=== PATIENT | male | born 1990 | race Caucasian/White ===

== ENCOUNTER 2016-12-07 22:18 | Emergency (ER) | payer BC ==
[~2016-12-07] VITALS: Ht 170.2 cm; Wt 86.3 kg
[2016-12-07] MEDS ORDERED: ONDANSETRON 4MG/2ML VIAL (J2405) IV ONE (23:45)
[2016-12-07] MEDS ORDERED: KETOROLAC 30 MG/ML VIAL (J1885) IV ONE (23:45)
[2016-12-07 23:48] LABS: BASO # 0.1 K/mm3 (0.0-0.2); BASO % 0.6 % (0.0-1.0); EOS # 0.3 K/mm3 (0.0-0.50); EOS % 2.9 % (0.0-3.0); LARGE UNSTAINED CELL # 0.2 K/mm3 (0.0-0.4); LARGE UNSTAINED CELL % 2.4 % (0.0-4.0); LYMPH # 2.9 K/mm3 (1.5-6.5); LYMPH % 28.4 % (24.0-44.0); MEAN CORPUSCULAR HEMOGLOBIN 31.1 pg (27.0-33.0); MEAN CORPUSCULAR HGB CONC 34.6 g/dl (32.0-36.5); MEAN CORPUSCULAR VOLUME 89.8 fl (80.0-96.0); MONO # 0.8 K/mm3 (0.0-0.8); MONO % 8.5 % (0.0-5.0); NEUTROPHILS # 5.4 K/mm3 (1.8-7.7); NEUTROPHILS % 57.3 % (36.0-66.0); PLATELET COUNT, AUTOMATED 258 k/mm3 (150-450); RED CELL DISTRIBUTION WIDTH 12.6 % (11.5-14.5); WHITE BLOOD COUNT 9.4 K/mm3 (4.0-10.0)
[2016-12-08 00:13] LABS: ALBUMIN/GLOBULIN RATIO 0.95 (1.00-1.93); ALKALINE PHOSPHATASE 76 U/L (45-117); ALT/SGPT 43 U/L (12-78); AMYLASE 52 U/L (25-115); ANION GAP 4 MEQ/L (8-16); AST/SGOT 26 U/L (15-37); BILIRUBIN,DIRECT < 0.1 MG/DL (0.0-0.2); BILIRUBIN,TOTAL 0.3 MG/DL (0.2-1.0); BLOOD UREA NITROGEN 8 MG/DL (7-18); CALCIUM LEVEL 9.3 MG/DL (8.5-10.1); CARBON DIOXIDE LEVEL 30 MEQ/L (21-32); CHLORIDE LEVEL 104 MEQ/L (98-107); CREATININE FOR GFR 0.93 MG/DL (0.70-1.30); GLOMERULAR FILTRATION RATE > 60.0 (>60); GLUCOSE, FASTING 85 MG/DL (70-105); POTASSIUM SERUM 3.6 MEQ/L (3.5-5.1); SODIUM LEVEL 138 MEQ/L (136-145); TOTAL PROTEIN 8.2 GM/DL (6.4-8.2)
[2016-12-08] MEDS ORDERED: OMEP40CA2 PO (00:38)
[2016-12-08 00:47] VITALS: BP 129/68
== END 2016-12-08 00:47 | disposition home or self-care (01) ==
LOC: M ED 22:18
DX: K29.70 Gastritis, unspecified, without bleeding (principal); R51 Headache; F17.200 Nicotine dependence, unspecified, uncomplicated
CPT/HCPCS: 80048; 80076; 82150; 83690; 85025; 96374; 96375; 99283; J1885; J2405

== ENCOUNTER 2019-06-14 15:50 | Emergency (ER) | payer BC ==
[~2019-06-14] VITALS: Ht 170.2 cm; Wt 89.9 kg
[~2019-06-14 15:50] MED LIST: OMEP40CA97 PO; VENTAER
[2019-06-14 16:22] LABS: BASO % 0.3 % (0.0-1.0); EOS # 0.2 10^3/uL (0.0-0.5); EOS % 1.5 % (0.0-3.0); HEMOGLOBIN 16.8 g/dl (13.5-17.5); LYMPH # 2.6 10^3/uL (1.5-5.0); LYMPH % 25.2 % (24.0-44.0); MEAN CORPUSCULAR HEMOGLOBIN 30.2 pg (27.0-33.0); MEAN CORPUSCULAR HGB CONC 33.6 g/dl (32.0-36.5); MEAN CORPUSCULAR VOLUME 89.9 fl (80.0-96.0); MONO # 1.1 10^3/uL (0.0-0.8); MONO % 10.6 % (0.0-5.0); NEUTROPHILS # 6.4 10^3/uL (1.5-8.5); NEUTROPHILS % 62.1 % (36.0-66.0); PLATELET COUNT, AUTOMATED 320 10^3/uL (150-450); RED BLOOD COUNT 5.56 10^6/uL (4.30-6.10); WHITE BLOOD COUNT 10.4 10^3/uL (4.0-10.0)
[2019-06-14 16:54] LABS: ALBUMIN 4.1 GM/DL (3.2-5.2); ALT/SGPT 39 U/L (12-78); AMYLASE 47 U/L (25-115); BILIRUBIN,DIRECT 0.1 MG/DL (0.0-0.2); BILIRUBIN,TOTAL 0.4 MG/DL (0.2-1.0); BLOOD UREA NITROGEN 13 MG/DL (7-18); CALCIUM LEVEL 9.3 MG/DL (8.5-10.1); CARBON DIOXIDE LEVEL 29 MEQ/L (21-32); CHLORIDE LEVEL 107 MEQ/L (98-107); CREATININE FOR GFR 1.01 MG/DL (0.70-1.30); GLOMERULAR FILTRATION RATE > 60.0 (>60); GLUCOSE, FASTING 79 MG/DL (70-100); POTASSIUM SERUM 3.8 MEQ/L (3.5-5.1); SODIUM LEVEL 140 MEQ/L (136-145); TOTAL PROTEIN 8.2 GM/DL (6.4-8.2)
--- NOTE | 2019-06-14 19:01 | REP ---
Chest x-ray: Two views. History: Chest pain. Comparison chest x-ray April 24, 2019. Findings: EKG monitoring electrodes overlie the chest. There is a linear opacity anteriorly overlying the heart on the lateral radiograph consistent with discoid atelectasis in the lingula or right middle lobe. This is not possible to localize on the frontal view. Lung jones are otherwise clear. Pleural angles are sharp. The heart is not enlarged. Pulmonary vasculature is not increased. No bony abnormalities seen. Impression: Plate-like atelectasis in one of the lung bases, either right middle lobe or lingula visible only on the lateral radiograph. Otherwise no acute disease. Electronically Signed by Neil Shoemaker MD 06/14/2019 06:52 P
[2019-06-14 19:09] LABS: LIPASE 85 U/L (73-393)
[2019-06-14] MEDS ORDERED: ASPIRIN 81 MG CHEW TABLET PO ONE (19:15)
[2019-06-14 19:36] LABS: CK-MB VALUE MASS < 1.0 NG/ML (<3.6); CPK CREATINE PHOSPHOKINASE 119 U/L (39-308); MB/CK RELATIVE INDEX 0.84 (< OR =4); TROPONIN I < 0.02 NG/ML (< 0.10)
--- NOTE | 2019-06-14 21:08 | ECGEPIP ---
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
[2019-06-14 22:23] LABS: CK-MB VALUE MASS < 1.0 NG/ML (<3.6); CPK CREATINE PHOSPHOKINASE 105 U/L (39-308); MB/CK RELATIVE INDEX 0.95 (< OR =4); TROPONIN I < 0.02 NG/ML (< 0.10)
[2019-06-14 22:45] VITALS: BP 113/68
--- NOTE | 2019-06-17 06:06 | ECGEPIP ---
[facility] - ED Test Date: 2019-06-14 Pat Name: TRIP JOSEPH Department: Room: - Gender: Male [employer] Member: : 1990 Requested By: ALISSA Moncada Order Number: [id number] Reading MD: Shmuel Somers Measurements Intervals [place] Rate: 72 P: 38 OK: 133 QRS: 67 QRSD: 87 T: 9 QT: 366 QTc: 402 Interpretive Statements SINUS RHYTHM BASELINE ARTIFACT AFFECTS INTERPRETATION SIMILAR TO PRIOR ON SAME DATE Electronically Signed on 06-17-2019 6:06:11 EST by Shmuel Somers
== END 2019-06-14 22:49 | disposition home or self-care (01) ==
LOC: M ED 15:50
DX: R07.9 Chest pain, unspecified (principal); J98.11 Atelectasis; M79.7 Fibromyalgia; K29.70 Gastritis, unspecified, without bleeding; F17.210 Nicotine dependence, cigarettes, uncomplicated; Z79.51 Long term (current) use of inhaled steroids

== ENCOUNTER → 2020-08-18 | Outpatient (CLI) | payer BC ==
--- NOTE | 2020-08-18 12:04 | REP ---
INDICATION: EPIGASTRIC PAIN. COMPARISON: None. TECHNIQUE/RADIOTRACER AND DOSE: 6.4 mCi of Technetium-99m mebrofenin was injected and sequential anterior images are acquired. 65 minutes after the mebrofenin injection, the patient consumed 8 ounces Ensure and an additional 60 minutes of imaging was acquired. Regions of interest are plotted around the gallbladder. FINDINGS: The initial hepatocellular parenchymal uptake phase is normal and homogeneous. Intra- and extra-hepatic bile ducts are labeled by the 10-minute image. The gallbladder is first labeled on the 15-minute image. There is normal washout from the liver parenchyma into the gallbladder and small intestine on subsequent images. The gallbladder ejection fraction is 89%. Values greater than 35% are considered normal with this technique. IMPRESSION: Normal hepatobiliary scan and normal gallbladder ejection fraction. <Electronically signed by Mode Shoemaker > 08/18/20 1200
== END ==
LOC: M RAD 09:27
PROVIDERS: ATTEND Surgery
DX: R10.13 Epigastric pain (principal)
CPT/HCPCS: 78227; A9537

== ENCOUNTER → 2020-11-04 | Outpatient (CLI) | payer BC ==
[~2020-11-04] MED LIST changes: +DULE100A INH; +OMEP40CA4 PO; -OMEP40CA97 PO
== END ==
LOC: M LABSMTC 09:40
PROVIDERS: ATTEND Anesthesiology
DX: Z20.828 Contact with and (suspected) exposure to other viral communicable diseases (principal); Z11.59 Encounter for screening for other viral diseases

== ENCOUNTER 2020-11-09 11:13 | Day surgery (SDC) | payer BC ==
[~2020-11-09] VITALS: Ht 170.2 cm; Wt 93.9 kg
[~2020-11-09 11:13] MED LIST changes: +NS 1,000 ML IV ONE
[2020-11-09] MEDS ORDERED: propofoL 200 MG/20 ML VIAL As Ordered ONE ×2 (11:48→11:58)
[2020-11-09] MEDS ORDERED: fentaNYL 100 MCG/2 ML INJECTION (J3010) As Ordered ONE ×2 (11:48→12:29)
[2020-11-09] MEDS ORDERED: LIDOCAINE 2% 100MG/5ML SDV (FOR ANES.) As Ordered ONE (11:48)
--- NOTE | 2020-11-09 12:03 | ROOR ---
Patient Name: Brett Garcia Procedure Date: 11/09/2020 11:51 AM Date of : 1990 Age: 30 Room: [facility] Gender: Male Note Status: Finalized Procedure: Upper GI endoscopy Indications: Dysphagia, Suspected esophageal reflux Providers: Mateo Daugherty Jr, MD Referring MD: CRISTI BURROWS DO Requesting Provider: Medicines: Propofol per Anesthesia Complications: No immediate complications. Procedure: Pre-Anesthesia Assessment: - Prior to the procedure, a History and Physical was performed, and patient medications and allergies were reviewed. The patient is competent. The risks and benefits of the procedure and the sedation options and risks were discussed with the patient. All questions were answered and informed consent was obtained. Patient identification and proposed procedure were verified by the physician and the nurse in the pre-procedure area and in the procedure room. Mental Status Examination: alert and oriented. Airway Examination: normal oropharyngeal airway and neck mobility. Respiratory Examination: clear to auscultation. CV Examination: normal. ASA Grade Assessment: II - A patient with mild systemic disease. After reviewing the risks and benefits, the patient was deemed in satisfactory condition to undergo the procedure. The anesthesia plan was to use moderate sedation / analgesia (conscious sedation). Immediately prior to administration of medications, the patient was re-assessed for adequacy to receive sedatives. The heart rate, respiratory rate, oxygen saturations, blood pressure, adequacy of pulmonary ventilation, and response to care were monitored throughout the procedure. The physical status of the patient was re-assessed after the procedure. The Endoscope was introduced through the mouth, and advanced to the second part of duodenum. The upper GI endoscopy was accomplished without difficulty. The patient tolerated the procedure well. Findings: The upper third of the esophagus, middle third of the esophagus, lower third of the esophagus and gastroesophageal junction were normal. The cardia, gastric fundus and gastric body were normal. Patchy moderate inflammation characterized by congestion (edema), erythema, friability and granularity was found in the prepyloric region of the stomach. Biopsies were taken with a cold forceps for histology. The duodenal bulb, first portion of the duodenum and second portion of the duodenum were normal. Biopsies for histology were taken with a cold forceps for evaluation of celiac disease. Impression: - Normal upper third of esophagus, middle third of esophagus, lower third of esophagus and gastroesophageal junction. - Normal cardia, gastric fundus and gastric body. - Gastritis. Biopsied. - Normal duodenal bulb, first portion of the duodenum and second portion of the duodenum. Biopsied. Recommendation: - Return to my office as previously scheduled. Procedure Code(s): --- Professional --- 62505, Esophagogastroduodenoscopy, flexible, transoral; with biopsy, single or multiple Diagnosis Code(s): --- Professional --- K29.70, Gastritis, unspecified, without bleeding R13.10, Dysphagia, unspecified CPT copyright 2019 [employer]. All rights reserved. The codes documented in this report are preliminary and upon registry np review may be revised to meet current compliance requirements. Mateo Daugherty MD Mateo Daugherty Jr, MD 11/09/2020 12:03:03 PM Electronically signed by Mateo Daugherty Jr, MD Number of Addenda: 0 Note Initiated On: 11/09/2020 11:51 AM Estimated Blood Loss: Estimated blood loss: none.
[2020-11-09 12:25] VITALS: BP 125/74
== END 2020-11-09 12:34 | disposition home or self-care (01) ==
LOC: M OPP 11:13
PROVIDERS: ATTEND Surgery
DX: K29.70 Gastritis, unspecified, without bleeding (principal); R13.10 Dysphagia, unspecified; K21.9 Gastro-esophageal reflux disease without esophagitis; Z79.899 Other long term (current) drug therapy; F17.210 Nicotine dependence, cigarettes, uncomplicated
CPT/HCPCS: 43239; 88305; J3010

== ENCOUNTER → 2020-12-22 | Outpatient (CLI) | payer BC ==
[~2020-12-22] MED LIST changes: -NS 1,000 ML IV ONE
--- NOTE | 2020-12-22 13:45 | REP ---
INDICATION: GASTRITIS, DYSPHAGIA. COMPARISON: None. TECHNIQUE/RADIOTRACER AND DOSE: Following the intravenous administration of 1.02 mCi technetium 99 M sulfur colloid in 2 scrambled eggs and 6 oz of water, multiple images of the upper abdomen are performed in the anterior and posterior projections for 90 minutes. FINDINGS: The gastric activity is measured. At the end of 90 minutes 85% of the ingested activity has emptied from the stomach. The T1/2 is 55 minutes which is normal. IMPRESSION: Normal gastric emptying time. <Electronically signed by Tae Yousif > 12/22/20 9942
== END ==
LOC: M RAD 11:29
PROVIDERS: ATTEND Physician Assistant
DX: K29.70 Gastritis, unspecified, without bleeding (principal); R13.10 Dysphagia, unspecified
CPT/HCPCS: 78264; A9541

== ENCOUNTER → 2021-05-16 | Outpatient (CLI) | payer BC | LOC: M LABSMTC 13:38 | PROVIDERS: ATTEND Anesthesiology | DX: Z01.812 Encounter for preprocedural laboratory examination (principal); Z20.822 Contact with and (suspected) exposure to COVID-19 ==

== ENCOUNTER 2021-05-21 13:12 | Day surgery (SDC) | payer BC ==
[~2021-05-21] VITALS: Ht 170.2 cm; Wt 91.6 kg
[~2021-05-21 13:12] MED LIST changes: +NS 1,000 ML IV ONE
[2021-05-21] MEDS ORDERED: LIDOCAINE 2% 100MG/5ML SDV (FOR ANES.) As Ordered ONE (13:37)
[2021-05-21] MEDS ORDERED: fentaNYL 100 MCG/2 ML INJECTION As Ordered ONE (13:37)
[2021-05-21] MEDS ORDERED: propofoL 500 MG/50 ML VIAL As Ordered ONE (13:38)
[2021-05-21 14:46] VITALS: BP 114/62
== END 2021-05-21 14:47 | disposition home or self-care (01) ==
LOC: M OPP 13:12
PROVIDERS: ATTEND Internal Medicine Gastroenterology
DX: K58.1 Irritable bowel syndrome with constipation (principal); R19.4 Change in bowel habit; K21.9 Gastro-esophageal reflux disease without esophagitis; R12 Heartburn; R13.10 Dysphagia, unspecified; F17.210 Nicotine dependence, cigarettes, uncomplicated; Z80.1 Family history of malignant neoplasm of trachea, bronchus and lung
CPT/HCPCS: 43239; 45378; 88305; J3010

== ENCOUNTER → 2022-03-11 | Outpatient (CLI) | payer BC ==
[~2022-03-11] MED LIST changes: +ACET1TAB55 PO; +ADV250INH INH; +DEXL60CA PO; +IBUP-1022 PO; -NS 1,000 ML IV ONE
== END ==
LOC: M LABSMTC 09:32
PROVIDERS: ATTEND Anesthesiology
DX: Z01.812 Encounter for preprocedural laboratory examination (principal); Z11.52 Encounter for screening for COVID-19

== ENCOUNTER 2022-03-15 11:20 | Day surgery (SDC) | payer BC ==
[~2022-03-15] VITALS: Ht 167.6 cm; Wt 93.4 kg
[~2022-03-15 11:20] MED LIST changes: +NS 1,000 ML IV ONE
[2022-03-15] MEDS ORDERED: propofoL 500 MG/50 ML VIAL As Ordered ONE (11:37)
[2022-03-15 13:14] VITALS: BP 129/73
== END 2022-03-15 13:25 | disposition home or self-care (01) ==
LOC: M OPP 11:20
PROVIDERS: ATTEND Internal Medicine Gastroenterology
DX: K21.9 Gastro-esophageal reflux disease without esophagitis (principal); F17.200 Nicotine dependence, unspecified, uncomplicated; M79.7 Fibromyalgia; J45.909 Unspecified asthma, uncomplicated; Z79.51 Long term (current) use of inhaled steroids; Z79.899 Other long term (current) drug therapy

== ENCOUNTER 2022-11-25 09:34 | Emergency (ER) | payer BC ==
[~2022-11-25] VITALS: Ht 170.2 cm; Wt 100.7 kg
[~2022-11-25 09:34] MED LIST changes: -DULE100A INH; +MOME13HF8 INH; -NS 1,000 ML IV ONE
[2022-11-25] MEDS ORDERED: OMEP40CA4 PO (09:51)
[2022-11-25] MEDS ORDERED: TREL1AER PO (09:51)
[2022-11-25] MEDS ORDERED: MIRA3350 PO (09:51)
[2022-11-25] MEDS ORDERED: NS 1,000 ML IV ONE (11:40)
[2022-11-25] MEDS ORDERED: KETOROLAC 30 MG/ML 1ML VIAL IV ONE (11:40)
[2022-11-25] MEDS ORDERED: ONDANSETRON 4MG 2ML VIAL IV ONE (11:40)
[2022-11-25] MEDS ORDERED: PANTOPRAZOLE 40MG VIAL IV ONE (11:40)
[2022-11-25 12:09] LABS: LIPASE 30 U/L (12-53)
[2022-11-25 12:10] LABS: AMYLASE 58 U/L (30-118)
[2022-11-25 12:11] LABS: ALBUMIN 4.1 G/DL (3.2-5.2); ALKALINE PHOSPHATASE 70 U/L (46-116); ALT/SGPT 64 U/L (7.0-40); AST/SGOT 32 U/L (<34); BILIRUBIN,DIRECT 0.2 MG/DL (<0.4); BILIRUBIN,TOTAL 0.5 MG/DL (0.3-1.2); BLOOD UREA NITROGEN 11 MG/DL (9-23); CALCIUM LEVEL 10.4 MG/DL (8.5-10.1); CARBON DIOXIDE LEVEL 27 MMOL/L (20-31); CHLORIDE LEVEL 104 MMOL/L (98-107); CREATININE FOR GFR 0.94 MG/DL (0.70-1.30); GLOMERULAR FILTRATION RATE > 60.0 (>60); GLUCOSE, FASTING 96 MG/DL (60-100); POTASSIUM SERUM 4.6 MMOL/L (3.5-5.1); SODIUM LEVEL 140 MMOL/L (136-145); TOTAL PROTEIN 7.5 G/DL (5.7-8.2)
[2022-11-25 12:15] LABS: PROTHROMBIN TIME 12.9 SECONDS (12.5-14.5)
[2022-11-25] MEDS ORDERED: ISOVUE-370 76% 100ML VIAL As Ordered ONE (12:15)
[2022-11-25 12:16] LABS: PARTIAL THROMBOPLASTIN TIME 27.6 SECONDS (24.8-34.2)
[2022-11-25 12:33] LABS: BASO # 0.1 10^3/uL (0.0-0.2); BASO % 0.7 % (0.0-1.0); EOS # 0.2 10^3/uL (0.0-0.5); HEMATOCRIT 51.1 % (42.0-52.0); HEMOGLOBIN 17.1 g/dl (13.5-17.5); LYMPH # 1.7 10^3/uL (1.5-5.0); LYMPH % 22.4 % (24.0-44.0); MEAN CORPUSCULAR HEMOGLOBIN 30.1 pg (27.0-33.0); MEAN CORPUSCULAR HGB CONC 33.5 g/dl (32.0-36.5); MEAN CORPUSCULAR VOLUME 89.8 fl (80.0-96.0); MONO % 12.4 % (2.0-8.0); NEUTROPHILS # 4.7 10^3/uL (1.5-8.5); PLATELET COUNT, AUTOMATED 293 10^3/uL (150-450); RED BLOOD COUNT 5.69 10^6/uL (4.30-6.10); WHITE BLOOD COUNT 7.6 10^3/uL (4.0-10.0)
[2022-11-25 13:14] LABS: CK-MB VALUE MASS < 1.0 NG/ML (<3.6)
[2022-11-25 13:17] LABS: CPK CREATINE PHOSPHOKINASE 175 U/L (46-171); MB/CK RELATIVE INDEX 0.57 (< OR =4)
[2022-11-25 13:41] VITALS: TEMP 97.8
[2022-11-25] MEDS ORDERED: CARA1TAB6 PO (14:05)
[2022-11-25 14:30] VITALS: BP 120/70; O2SAT 99
== END 2022-11-25 14:32 | disposition home or self-care (01) ==
LOC: M ED 09:34
DX: K21.9 Gastro-esophageal reflux disease without esophagitis (principal); J45.909 Unspecified asthma, uncomplicated; F17.200 Nicotine dependence, unspecified, uncomplicated; Z87.442 Personal history of urinary calculi; Z79.810 Long term (current) use of selective estrogen receptor modulators (SERMs); Z79.899 Other long term (current) drug therapy
CPT/HCPCS: 36415; 71275; 74177; 80048; 80076; 81001; 82150; 82550; 82553; 83605; 83690; 84484; 85025; 85610; 85730; 93005; 96361; 96374; 99284; C9113; J1885; J2405; Q9967

== ENCOUNTER → 2022-11-27 | Outpatient (CLI) | payer BC ==
[~2022-11-27] MED LIST changes: +CARA1TAB6 PO; +MIRA3350 PO; +TREL1AER PO
== END ==
LOC: M SOG 09:47
PROVIDERS: ATTEND Orthopaedic Surgery
DX: M25.532 Pain in left wrist (principal); M25.531 Pain in right wrist

== ENCOUNTER → 2022-12-17 | Outpatient (CLI) | payer BC ==
[~2022-12-17] MED LIST changes: +ISOVUE-370 76% 100ML VIAL As Ordered ONE
== END ==
LOC: M RAD 13:23
PROVIDERS: ATTEND Physician Assistant Medical
DX: R10.12 Left upper quadrant pain (principal)
CPT/HCPCS: 74178; Q9967

== ENCOUNTER 2024-04-14 15:08 | Emergency (ER) | payer OTHER ==
[~2024-04-14] VITALS: Ht 170.2 cm; Wt 86.1 kg
[~2024-04-14 15:08] MED LIST changes: -ADV250INH INH; +ADVA1AER9 INH; +ALBU8.5H; +CETI-24 PO; -DEXL60CA PO; +DEXL60CA13 PO; +FLUT1BLS5; -ISOVUE-370 76% 100ML VIAL As Ordered ONE; +MONT10TA97 PO; +SYMB16INH
[2024-04-14 18:51] LABS: BASO # 0.1 10^3/uL (0.0-0.2); BASO % 0.4 % (0.0-1.0); EOS # 0.2 10^3/uL (0.0-0.5); EOS % 1.1 % (0.0-3.0); HEMATOCRIT 49.5 % (42.0-52.0); HEMOGLOBIN 17.2 g/dl (13.5-17.5); LYMPH # 3.2 10^3/uL (1.5-5.0); LYMPH % 19.5 % (24.0-44.0); MEAN CORPUSCULAR HEMOGLOBIN 30.9 pg (27.0-33.0); MEAN CORPUSCULAR HGB CONC 34.7 g/dl (32.0-36.5); MONO # 1.4 10^3/uL (0.0-0.8); MONO % 8.4 % (2.0-8.0); NEUTROPHILS # 11.3 10^3/uL (1.5-8.5); NEUTROPHILS % 70.1 % (36.0-66.0); PLATELET COUNT, AUTOMATED 319 10^3/uL (150-450); RED BLOOD COUNT 5.56 10^6/uL (4.30-6.10); WHITE BLOOD COUNT 16.1 10^3/uL (4.0-10.0)
[2024-04-14 19:56] LABS: CK-MB VALUE MASS < 1.0 NG/ML (<3.6)
[2024-04-14 19:57] LABS: CPK CREATINE PHOSPHOKINASE 52 U/L (46-171); MB/CK RELATIVE INDEX 1.92 (< OR =4)
[2024-04-14 20:04] LABS: BLOOD UREA NITROGEN 12 MG/DL (9-23); CALCIUM LEVEL 10.7 MG/DL (8.5-10.1); CARBON DIOXIDE LEVEL 31 MMOL/L (20-31); CHLORIDE LEVEL 102 MMOL/L (98-107); CREATININE FOR GFR 0.86 MG/DL (0.70-1.30); GLOMERULAR FILTRATION RATE > 60.0 (>60); GLUCOSE, FASTING 90 MG/DL (60-100); POTASSIUM SERUM 4.2 MMOL/L (3.5-5.1); SODIUM LEVEL 140 MMOL/L (136-145)
[2024-04-14 20:56] VITALS: TEMP 97.6
[2024-04-14] MEDS: KETOROLAC 30 MG/ML 1ML VIAL IV ONE (21:40)
[2024-04-14 21:48] VITALS: BP 128/62; O2SAT 98
== END 2024-04-14 21:50 | disposition home or self-care (01) ==
LOC: M ED 15:08
DX: R07.89 Other chest pain (principal); K21.9 Gastro-esophageal reflux disease without esophagitis; J45.909 Unspecified asthma, uncomplicated; K58.9 Irritable bowel syndrome, unspecified; Z87.891 Personal history of nicotine dependence; Z87.442 Personal history of urinary calculi; Z79.899 Other long term (current) drug therapy
CPT/HCPCS: 71045; 80048; 82550; 82553; 84484; 85025; 85379; 93005; 93041; 94760; 96374; 99285; J1885

== ENCOUNTER → 2025-02-03 | Outpatient (CLI) | payer OTHER ==
[~2025-02-03] MED LIST changes: -IBUP-1022 PO; +IBUP600T42 PO; +ISOVUE-370 76% 100 ML VIAL ONE
== END ==
LOC: M PLAIMG 08:55
PROVIDERS: ATTEND Internal Medicine Gastroenterology
DX: R10.12 Left upper quadrant pain (principal); R10.32 Left lower quadrant pain; K40.90 Unilateral inguinal hernia, without obstruction or gangrene, not specified as recurrent; Z18.12 Retained nonmagnetic metal fragments
CPT/HCPCS: 74177; Q9967